=== PATIENT | female | born 1995 | race Caucasian/White ===

== ENCOUNTER 2020-11-05 19:38 | Inpatient (IN) ==
[2020-11-05] MEDS ORDERED: OXYTOCIN 30 UNITS/500 ML BAG IV PRN (21:14)
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
[2020-11-05 21:44] LABS: Hematocrit (blood only) 36.3 % (37-47); Hemoglobin 12.4 g/dL (12.0-16.0); Mean Corpuscular Hemoglobin 29.8 pg (25-34); Mean Corpuscular Hgb Conc 34.2 g/dL (32-36); Mean Corpuscular Volume 87.3 fL (80-100); Mean Platelet Volume 11.1 fL (7.4-10.4); Platelet Count 212 K/uL (130-400); RDW Coefficient of Variation 13.2 % (11.5-14.5); RDW Standard Deviation 41.9 fL (36.4-46.3); Red Blood Count 4.16 M/uL (4.2-5.4); White Blood Count 9.25 K/uL (4.8-10.8)
[2020-11-06] MEDS ORDERED: OXYTOCIN 30 UNITS/500 ML BAG IV PRN ×2 (07:12→18:09)
[2020-11-06] MEDS: LACTATED RINGER'S 1,000 ML IV PRN ×2 (08:54→11:17)
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
[2020-11-06] MEDS ORDERED: fentaNYL citrate 100 MCG/2 ML VIAL ONE (10:36)
[2020-11-06] MEDS ORDERED: SODIUM CHLORIDE 0.9% INJ 10 ML VIAL ONE (10:36)
[2020-11-06] MEDS ORDERED: ePHEDrine sulfate 50 MG/ML AMP ONE (10:36)
[2020-11-06] MEDS ORDERED: BUPIVACAINE 0.25% 30 ML VIAL ONE (10:36)
[2020-11-06] MEDS ORDERED: fentaNYL 2MCG/ML ROPIVACAINE 1.25MG/ML 100 ML BAG EPI ONE (10:37)
[2020-11-06] MEDS ORDERED: NALOXONE HCL 0.4 MG/1 ML VIAL/CARP IV PRN (11:03)
[2020-11-06] MEDS ORDERED: fentaNYL 2MCG/ML ROPIVACAINE 1.25MG/ML 100 ML BAG EPI PRN (11:03)
[2020-11-06] MEDS ORDERED: ePHEDrine sulfate 50 MG/ML AMP IV PRN (11:03)
[2020-11-06] MEDS ORDERED: ONDANSETRON INJ 2 MG/ML 2 ML VIAL IV PRN (11:03)
[2020-11-06] MEDS ORDERED: diphenhydrAMINE 50 MG/ML VIAL IV PRN (11:03)
[2020-11-06] MEDS ORDERED: NALOXONE HCL 1 MG in SODIUM CHLORIDE 0.9% 1000ML 1,000 ML IV PRN (11:03)
--- NOTE | 2020-11-06 11:08 | Anesthesiology Consultation ---
Date of Service November 06, 2020 Covid 19 negative on 11/01/20. Assessment & Plan Chart Review Chart Review: Patient NOT seen in Pre Admission Testing and Acceptable Risk for Labor Epidural Consults Requested none ASA ASA2 Proposed Anesthesia Anesthesia Type: Labor Epidural and CSE Risk / Benefits Reviewed With: PT / POA / Parent / Guardian, Accepts Plan and Informed Consent Obtained History Height/Weight Height: 5 ft 7 in Weight: 206 kg Allergies Allergy/AdvReac Type Severity Reaction Status Date / Time amoxicillin Allergy Unknown Unknown Verified 11/05/20 20:00 ampicillin Allergy Unknown Unknown Verified 11/05/20 20:00 Penicillins Allergy Unknown Unknown Verified 11/05/20 20:00 Medications Home Medications Medication Instructions Recorded Confirmed Last Taken albuterol sulfate 90 mcg/actuation 2 puffs INH Q6H PRN 03/29/20 11/05/20 Unknown aerosol inhaler prenat.vits,alice,rcr-dtks-xcdwd 1 tab PO DAILY 03/29/20 11/05/20 11/05/20 08:00 famotidine 1 tab PO DAILY 08/18/20 11/05/20 11/04/20 08:00 ferrous sulfate 1 tab PO DAILY 09/26/20 11/05/20 11/04/20 08:00 Active Medications Generic Name Dose Route Start Last Admin Trade Name Freq PRN Reason Stop Dose Admin Lactated Ringer's 1,000 mls @ 125 mls/hr 11/05/20 21:14 11/06/20 10:43 Lr IV 11/07/20 21:13 999 mls/hr .Q8H PRN Infusion L&D Protocol Protocol Oxytocin 30 units in 500 mls @ 6 mls/hr 11/06/20 07:12 11/06/20 10:07 Pitocin IV 11/08/20 07:11 0.36 units/hr .Q24H PRN 6 mls/hr Labor Induction/Augmentation Titration Protocol 0.36 UNITS/HR NPO Date Last Intake of Fluids: 11/06/20 Time Last Intake of Fluids: 08:30 Date Last Intake of Solids: 11/06/20 Time Last Intake of Solids: 08:30 Past Medical History Medical History Encounter for anatomic survey History of asthma Rh negative status during Exercise / Class Metabolic Activity II 4-5 Yardwork/Stairs/Walk up hill Past Family History Family History Mother Heart murmur Sister Heart murmur Past Surgical History Surgical History S/P tonsillectomy and adenoidectomy Past Anesthesia History No Hx of Anesthesia Complications and No Family Hx of Anesthesia Complications History of PONV No Hx of PONV and No Hx of Motion Sickness Social History Smoking Status: Never smoker Hx Alcohol Use: No Hx Substance Use: No Review of Systems no chest pain or sob Physical Exam Vital Signs Last Vital Signs Temp 36.6 C 11/06/20 07:12 Pulse 101 H 11/06/20 10:15 Resp 20 11/06/20 07:12 BP 127/78 11/06/20 10:15 SpO2 100 ENMT Mouth: no TMJ abnormality Thyromental Distance: > or= 3.5 Finger Breadths Mallampati Class: II Neck normal visual inspection Respiratory normal respiratory effort Auscultation: lungs clear to auscultation bilaterally Cardiovascular Rate/Rhythm: regular rate and regular rhythm Musculoskeletal Spine: normal cervical ROM Neurologic moves all extremities Psychiatric Orientation: alert and oriented x 3 Testing Laboratory Results 11/05/20 21:33
[2020-11-06] MEDS ORDERED: ACETAMINOPHEN 325 MG TAB PO PRN (18:09)
[2020-11-06] MEDS ORDERED: oxyCODONE/ACETAMINOPHEN 5mg/325mg TAB PO PRN (18:09)
[2020-11-06] MEDS ORDERED: HYDROCORTISONE ACETATE 25 MG SUPP PR PRN (18:17)
[2020-11-06] MEDS ORDERED: DIPHTHERIA/TETANUS/PERTUSSIS 0.5 ML SYR/VIAL IM ONE (18:17)
[2020-11-06] MEDS ORDERED: ALBUTEROL HFA 8 GM INHALER INH PRN (18:17)
[2020-11-06] MEDS ORDERED: SUPERCREAM 0.870% 15 GM JAR EXT PRN (18:17)
[2020-11-06] MEDS ORDERED: BENZOCAINE 20% AER SPR 82.5 GM CAN EXT PRN (18:17)
[2020-11-06] MEDS ORDERED: bisacodyL 10 MG SUPP PR PRN (18:17)
--- NOTE | 2020-11-06 18:41 | Anesthesia Procedure Note ---
Date of Service November 06, 2020 Anesthesia Post Epidural Note Vital Signs Vital Signs: Temp Pulse Resp BP Pulse Ox 37.0 C 112 H 18 161/79 H 99 11/06/20 18:10 11/06/20 18:28 11/06/20 18:25 11/06/20 18:28 11/06/20 18:02 Pain Intensity Lower Medial Abdomen: Pain Intensity: 0 Notes Mental Status: alert / awake / arousable and participated in evaluation Nausea / Vomiting: adequately controlled Pain: adequately controlled Airway Patency, RR, SpO2: stable & adequate BP & HR: stable & adequate Hydration State: stable & adequate Neuraxial Anesthesia: was administered and sensory block is resolving Anesthetic Complications: no major complications apparent and Pt Satisfied with anesthetic care Epidural: Removed without complications and With tip intact
[2020-11-06] MEDS: IBUPROFEN 600 MG TAB PO PRN (19:33)
[2020-11-06] MEDS: DOCUSATE SODIUM 100 MG CAP PO SCH (20:49)
--- NOTE | 2020-11-06 22:53 | Delivery Summary ---
Vaginal Delivery Summary Date of Service November 06, 2020 The patient is a 25-year-old one P0 white female EDC of 11/05/20 who pres ents for induction of labor for postterm . A cervical balloon was placed the night prior to the induction, it was expelled at approximately 6:30 AM. Pitocin augmentation of her labor was begun, she received effective epidural analgesia. Membranes were ruptured at 8 cm of dilation for a very small amount of fluid. She progressed to full dilation, and pushed effectively over intact perineum for delivery of a viable male infant. The infant was vigorous at and was moving all four limbs. After 1 minute the cord was clamped and cut. The placenta was expressed intact with a three-vessel cord. A first-degree vaginal laceration and first-degree right labial laceration were repaired with 3-0 chromic in the usual fashion. Estimated blood loss was 300 cc. bleeding was controlled with dilute Pitocin. All counts were correct after the delivery. Mother and infant were doing well . [facility] Vaginal Delivery Charge Vaginal Delivery Codes: 68983 global code for the antepartum, delivery, and post-
[2020-11-07] MEDS: IBUPROFEN 600 MG TAB PO PRN ×2 (03:25→16:33)
[2020-11-07 06:19] LABS: Hematocrit (blood only) 33.3 % (37-47); Hemoglobin 11.4 g/dL (12.0-16.0); Mean Corpuscular Hemoglobin 29.8 pg (25-34); Mean Corpuscular Hgb Conc 34.2 g/dL (32-36); Mean Corpuscular Volume 86.9 fL (80-100); Platelet Count 191 K/uL (130-400); RDW Coefficient of Variation 13.3 % (11.5-14.5); RDW Standard Deviation 42.8 fL (36.4-46.3); Red Blood Count 3.83 M/uL (4.2-5.4); White Blood Count 12.98 K/uL (4.8-10.8)
--- NOTE | 2020-11-07 06:58 | Obstetrical Progress Note ---
Date of Service <Mony Parminder Castillo DO - Last Filed: 11/07/20 07:20> November 07, 2020 Assessment & Plan <Mony Parminder Castillo DO - Last Filed: 11/07/20 07:20> (1) state: PPD #1 - PNL: Rh NEGATIVE, RI, GBS neg, COVID neg -- Will plan for Rhogam prior to d/c if baby is Rh+ - Feels well today. Eating well, voiding well, ambulating well. - Pain well controlled with ibuprofen 600mg Q4H PRN - Routine care -- OOB, ambulation, diet progression as tolerated - After discharge will have 6 week follow-up with Dr. Dupont. (2) Rh negative status during : (3) Supervision of normal first : Subjective <Mony MossDaniela Castillo DO - Last Filed: 11/07/20 07:20> Niki Bustillos is a 25 y/o female who is PPD #1 following spontaneous vaginal delivery s/p IOL at 40 +1 weeks. She reports feeling well overall this morning. Mild abdominal cramping and 3/10 pain well managed on analgesics. Voiding without dysuria. Tolerating meals overnight without difficulty, nausea, or vomiting. Patient has been able to ambulate some. She is passing gas. Has persistent lochia that improved overnight but she feels slight increasing over the past 1 hour after waking up from sleep (baby was in the nursery overnight). Currently bottle feeding. No breast pain/fullness. Review of Systems Denies fever or chills. Denies shortness of breath or cough. Denies chest pain. Denies breast pain. Denies dysuria. Denies leg pain or leg swelling. Denies headache or changes in vision. Physical Exam <Mony Castillo DO - Last Filed: 11/07/20 07:20> General: Alert, oriented. No acute distress. Cardiac: Regular rate and rhythm. No murmurs. Respiratory: Clear to auscultation bilaterally a/p, no wheezes/rales/rhonchi. No increased work of breathing. Symmetrical chest rise. No respiratory distress. Abdomen: Soft, nontender, nondistended. Bowel sounds present. Uterus: Uterine fundus firm, palpable 1 cm above umbilicus. Lower Extremities: No lower extremity edema or swelling. No deep calf pain. Rogelio's negative bilaterally. Results & Data ([facility]) <Mony Castillo DO - Last Filed: 11/07/20 07:20> Vital Signs (Past 12 Hours) Vital Signs Temp Pulse Pulse Resp BP BP Pulse Ox 11/07/20 03:20 36.9 C 100 H 18 108/60 98 11/06/20 23:20 36.7 C 91 H 18 116/66 97 11/06/20 20:50 36.8 C 92 H 18 125/72 97 11/06/20 20:11 37.0 C 108 H 18 131/60 11/06/20 19:56 107 H 136/60 11/06/20 19:41 110 H 18 148/70 H 11/06/20 19:26 112 H 142/64 H 11/06/20 19:11 112 H 18 148/67 H Laboratory Results 11/07/20 11/07/20 Range/Units 06:00 06:00 WBC 12.98 H (4.8-10.8) K/uL RBC 3.83 L (4.2-5.4) M/uL Hgb 11.4 L (12.0-16.0) g/dL Hct 33.3 L (37-47) % MCV 86.9 (80-100) fL MCH 29.8 (25-34) pg MCHC 34.2 (32-36) g/dL RDW Std Deviation 42.8 (36.4-46.3) fL RDW Coeff of Jackie 13.3 (11.5-14.5) % Plt Count 191 (130-400) K/uL MPV 11.0 H (7.4-10.4) fL Blood Type Pending Antibody Screen Pending Screen Pending <Joanna Blunt MD, FACOG - Last Filed: 11/07/20 07:38> Co-Signing Physician Notes Resident Physician Supervision Note: I interviewed and examined the patient. Discussed with Dr. Castillo and agree with findings and plan as documented in the note. Any exceptions or clarifications are listed here: [None] Documented By: Joanna Blunt MD, FACOG Resident Activity Tracking <Mony Castillo DO - Last Filed: 11/07/20 07:20> Resident Involvement: Resident Care Provided Care Provided: OB Delivery
[2020-11-07] MEDS ORDERED: PRENATAL VITAMIN 1 TAB PO SCH (08:00)
[2020-11-07] MEDS: DOCUSATE SODIUM 100 MG CAP PO SCH ×2 (08:02→20:32)
[2020-11-07] MEDS ORDERED: NON-FORMULARY MEDICATION (Prenat.Vits,Cal,Min-Iron-Folic tablet) PO SCH (09:00)
[2020-11-07] MEDS ORDERED: FAMOTIDINE 20 MG TAB PO SCH (09:00)
[2020-11-07] MEDS ORDERED: bisacodyL 5 MG TABEC PO SCH (20:00)
== END 2020-11-07 21:00 | disposition home or self-care (01) | DRG 807 ==
LOC: 4S1 19:38 → OPB 19:38 → 4S1 21:14 → 4S2 11-06 20:56

== ENCOUNTER 2024-11-05 13:56 | Inpatient (IN) ==
[2024-11-05] MEDS ORDERED: OXYTOCIN 30 UNITS/NSS 30 UNITS/500 ML BAG IV PRN (15:00)
[2024-11-05] MEDS ORDERED: LIDOCAINE 1% LOCAL 20 ML VIAL INFIL PRN (15:00)
[2024-11-05] MEDS ORDERED: SODIUM CHLORIDE 0.9% 500 ML IV SCH (16:00)
[2024-11-05 16:06] LABS: Hematocrit (blood only) 32.4 % (37.0-47.0); Hemoglobin 10.9 g/dl (12.0-16.0); Mean Corpuscular Hemoglobin 27.5 pg (25.0-34.0); Mean Corpuscular Hgb Conc 33.6 g/dL (32.0-36.0); Mean Corpuscular Volume 81.8 fL (80.0-100.0); Mean Platelet Volume 11.7 fL (9.4-12.4); Platelet Count 209 K/uL (130-400); RDW Coefficient of Variation 12.9 % (11.5-14.5); RDW Standard Deviation 38.3 fL (36.4-46.3); Red Blood Count 3.96 M/uL (4.20-5.40); White Blood Count 8.55 K/ul (4.8-10.8)
[2024-11-05] MEDS: OXYTOCIN 30 UNITS/NSS 30 UNITS/500 ML BAG IV PRN (16:12)
[2024-11-05] MEDS: SODIUM CHLORIDE 0.9% 1,000 ML IV SCH (16:12)
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
--- NOTE | 2024-11-05 19:53 | Labor Progress Brief Note ---
Date of Service November 05, 2024 Subjective feeling pain with ctx, request epidural prior to arom balloon fell out about 1hr ago Assessment & Plan (1) Encounter for induction of labor: (2) Gestational diabetes mellitus (GDM) affecting , antepartum: (3) Rh negative status during : Plan plan arom once comfortable from epidural. fhts categ 1. c/w pitocin. Admission and Anticipated Discharge Date Admission Date: November 05, 2024 Physical Exam Constitutional: WD/WN, vitals as above Genitourinary: Manual OB Exam: + cervical dilation 4 cm, + cervical effacement 50% and + station (post) -2 OB Exam Monitor Tracing: + external FHT monitor used, + external uterine monitor used (q3), + category I and + normal FHT variability Results & Data Vital Signs (Past 12 Hours) Vital Signs Temp Pulse Resp BP 11/05/24 19:00 98.2 F 18 11/05/24 19:00 85 116/74 11/05/24 18:16 92 H 16 119/70 11/05/24 17:17 95 H 16 108/63 11/05/24 16:15 97 H 18 118/66 11/05/24 14:38 18 11/05/24 14:38 97.9 F 18 11/05/24 14:37 97.9 F 18 Coding Level of Care Code None Diagnoses Encounter for induction of labor Z34.90 Gestational diabetes mellitus (GDM) affecting , antepartum O24.419 Rh negative status during O26.899; Z67.91
[2024-11-05] MEDS ORDERED: diphenhydrAMINE 50 MG/ML VIAL IV PRN (20:11)
[2024-11-05] MEDS ORDERED: SODIUM CHLORIDE 0.9% PF INJ 10 ML VIAL EPI STA (20:11)
[2024-11-05] MEDS ORDERED: NALBUPHINE HCL INJ 10 MG/ML AMP IV PRN (20:11)
[2024-11-05] MEDS ORDERED: LIDOCAINE 2% MPF LOCAL 5 ML VIAL EPI PRN (20:11)
[2024-11-05] MEDS ORDERED: LIDOCAINE 2%/EPINEPHRINE 1:200,000 20 ML PF EPI STA (20:11)
[2024-11-05] MEDS ORDERED: fentaNYL citrate PF 100 MCG/2 ML VIAL EPI STA (20:11)
[2024-11-05] MEDS ORDERED: NALOXONE HCL 0.4 MG/1 ML VIAL/CARP IV PRN (20:11)
[2024-11-05] MEDS ORDERED: ROPIVACAINE 0.5% PF 5 MG/ML 20 ML VIAL EPI PRN (20:11)
[2024-11-05] MEDS ORDERED: SODIUM CHLORIDE 0.9% PF INJ 10 ML VIAL EPI PRN (20:11)
[2024-11-05] MEDS ORDERED: NALOXONE HCL 1 MG in SODIUM CHLORIDE 0.9% 1,000 ML IV PRN (20:11)
[2024-11-05] MEDS ORDERED: ePHEDrine sulfate 50 MG/ML AMP IV PRN (20:11)
--- NOTE | 2024-11-05 20:11 | Anesthesiology Consultation ---
Date of Service November 05, 2024 Assessment & Plan (1) Encounter for pre-operative examination: Chart Review Chart Review: Patient NOT seen in Pre Admission Testing and Acceptable Risk for Labor Epidural Consults Requested none History Height/Weight Height: 5 ft 7 in Weight: 92.533 kg Allergies Allergy/AdvReac Type Severity Reaction Status Date / Time amoxicillin Allergy Unknown Unknown Verified 11/04/24 10:37 ampicillin Allergy Unknown Unknown Verified 11/04/24 10:37 Penicillins Allergy Unknown Unknown Verified 11/04/24 10:37 Medications Home Medications Medication Instructions Recorded Confirmed Last Taken albuterol sulfate 90 mcg/actuation 2 puffs inhalation Q6H PRN Asthma 03/29/20 11/05/24 08/26/24 aerosol inhaler ondansetron HCl 4 mg tablet 4 mg PO DAILY PRN nausea and 05/27/24 11/05/24 08/28/24 vomiting #30 tabs acetone (urine) test (Ketone Urine #50 ea 06/21/24 11/04/24 Unknown Test strips) blood sugar diagnostic (OneTouch #150 ea 06/21/24 11/04/24 Unknown Verio test strips) blood-glucose meter (OneTouch #1 ea 06/21/24 11/04/24 Unknown Verio Reflect Meter) lancets 33 gauge (OneTouch Delica #150 ea 06/21/24 11/04/24 Unknown Plus Lancet) vits no.124-ferrous fum 1 tab PO DAILY 11/05/24 11/05/24 Unknown 27 mg iron-folic acid 800 mcg tablet ( Vitamin) Active Medications Generic Name Dose Route Start Last Admin Trade Name Freq PRN Reason Stop Dose Admin Oxytocin 30 units in 500 mls @ 8 mls/hr 11/05/24 15:00 11/05/24 18:56 Pitocin 30 Units/Nss IV 11/07/24 14:59 0.48 units/hr .Q24H PRN 8 mls/hr Labor Induction/Augmentation Titration Protocol 0.48 UNITS/HR Sodium Chloride 1,000 mls @ 80 mls/hr 11/05/24 16:15 11/05/24 16:12 Nss IV 11/06/24 16:14 80 mls/hr .[id number] HANSEL Administration Past Medical History Medical History Varicella vaccination Abnormal uterine bleeding Supervision of normal first History of asthma Past Family History Family History Mother Heart murmur Sister Heart murmur Denies family history of Ovarian cancer Breast cancer Colorectal cancer Past Surgical History Surgical History S/P tonsillectomy and adenoidectomy Social History Smoking Status: Former smoker Do You Dip or Chew Tobacco: No Hx Alcohol Use: No Hx Substance Use: No substance use type: does not use Physical Exam Vital Signs Last Vital Signs Temp 98.2 F 11/05/24 19:00 Pulse 98 H 11/05/24 20:06 Resp 18 11/05/24 19:00 BP 126/65 11/05/24 19:57 Pulse Ox 100 11/05/24 20:06 Testing Laboratory Results 11/05/24 15:37 11/05/24 16:04 POC Glucose 106 H
[2024-11-05] MEDS: fentANYL 2 MCG/ML BUPIVacaine 0.125%-NSS 100ML BAG EPI PRN (20:25)
[2024-11-05] MEDS: BUPIVACAINE 0.25% PF 30 ML VIAL EPI STA (20:25)
[2024-11-05] MEDS ORDERED: NURSING L&D Epidural Breakthrough Pain Update ONE (21:35)
--- NOTE | 2024-11-05 22:50 | Anesthesia Procedure Note ---
Date of Service November 05, 2024 Anesthesia Epidural Re-Dose Vital Signs Temp Pulse Resp BP Pulse Ox 97.9 F 92 H 18 128/75 99 11/05/24 21:00 11/05/24 22:46 11/05/24 19:00 11/05/24 22:32 11/05/24 22:46 Notes Pain Intensity: 6 Dilatation (cm): 6.0 Effacement (%): 75 Called by nursing to evaluate epidural as the patient is having increased pain. The epidural was re-dosed with the following medications (all medications via epidural route) after negative aspiration of the epidural catheter for CSF/HEME. 0.25 Bupivacaine (4ml) with 100 mcg Fentanyl After Epidural Re-Dose Mental Status: alert / awake / arousable Pain: improving with treatment Airway Patency, RR, SpO2: stable & adequate BP & HR: stable & adequate
[2024-11-05] MEDS ORDERED: ONDANSETRON INJ 2 MG/ML 2 ML VIAL IV PRN (22:52)
[2024-11-05] MEDS: BUPIVACAINE 0.25% PF 30 ML VIAL EPI PRN (22:54)
[2024-11-05] MEDS: fentaNYL citrate PF 100 MCG/2 ML VIAL EPI PRN (22:54)
[2024-11-06] MEDS: CALCIUM CARBONATE 500 MG CHEWABLE TAB PO PRN (00:08)
--- NOTE | 2024-11-06 01:17 | Delivery Summary ---
Vaginal Delivery Summary Date of Service November 06, 2024 Vaginal Delivery Summary The patient dilated to complete and pushed to deliver a viable female infant Apgars 8 and 9 via over intact perineum. Mouth and nose bulb suctioned at perineum. Body cord noted and delivered through. Shoulders and body delivered with ease. was vigorous and crying at . Cord clamped at 30 seconds of life and to maternal abdomen where the cord was then doubly clamped and cut. Placenta delivered spontaneously and intact, three-vessel cord. Hemostasis achieved with dilute pitocin and uterine massage. Cervix and sulci intact. QBL 164 cc. Mother and baby stable in recovery. [facility] Vaginal Delivery Charge Delivery Type Details:
[2024-11-06] MEDS ORDERED: HYDROCORTISONE ACETATE 25 MG SUPP PR PRN (04:00)
[2024-11-06] MEDS ORDERED: BENZOCAINE 20% SPRY 85 APPLN/85 GM CAN EXT PRN (04:00)
[2024-11-06] MEDS ORDERED: ALBUTEROL HFA 8 GM INHALER INH PRN (04:00)
[2024-11-06] MEDS ORDERED: DIPHTHER/TETAN/PERTUS Vaccine (Tdap, Adol/Adult) 0.5mL IM ONE (04:00)
[2024-11-06] MEDS ORDERED: oxyCODONE/ACETAMINOPHEN 5mg/325mg TAB PO PRN (04:00)
[2024-11-06] MEDS ORDERED: OXYTOCIN 30 UNITS/NSS 30 UNITS/500 ML BAG IV PRN (04:00)
[2024-11-06] MEDS: LIDOCAINE 2%/EPINEPHRINE 1:200,000 20 ML PF ONE (04:05)
[2024-11-06] MEDS: SODIUM CHLORIDE 0.9% PF INJ 10 ML VIAL ONE (04:05)
[2024-11-06] MEDS: BUPIVACAINE 0.25% PF 30 ML VIAL ONE (04:06)
[2024-11-06] MEDS: ePHEDrine sulfate 50 MG/ML AMP ONE (04:06)
[2024-11-06] MEDS: fentaNYL citrate PF 100 MCG/2 ML VIAL ONE (04:06)
[2024-11-06] MEDS: fentANYL 2 MCG/ML BUPIVacaine 0.125%-NSS 100ML BAG ONE (04:06)
[2024-11-06] MEDS: IBUPROFEN 600 MG TAB PO PRN (04:32)
[2024-11-06] MEDS: PRENATAL VITAMIN 1 TAB PO SCH (08:41)
[2024-11-06] MEDS: DOCUSATE SODIUM 100 MG CAP PO SCH (08:41)
--- NOTE | 2024-11-06 08:49 | Anesthesia Procedure Note ---
Date of Service November 06, 2024 Anesthesia Post Epidural Note Vital Signs Vital Signs: Temp Pulse Resp BP Pulse Ox O2 Del Method 37.0 C 92 H 16 119/75 97 Room Air 11/06/24 07:45 11/06/24 07:45 11/06/24 07:45 11/06/24 07:45 11/06/24 04:15 11/06/24 07:45 Pain Intensity Bilateral Lower Abdomen: Pain Intensity: 0 Notes Mental Status: alert / awake / arousable Nausea / Vomiting: adequately controlled Pain: adequately controlled Airway Patency, RR, SpO2: stable & adequate BP & HR: stable & adequate Hydration State: stable & adequate Neuraxial Anesthesia: sensory block resolved Anesthetic Complications: no major complications apparent and Pt Satisfied with anesthetic care Epidural: Removed without complications and With tip intact Notes: Epidural removed per patient request. Removed without complication with the tip intact. Patient tolerated well. Band-aid applied to insertion site.
[2024-11-07] MEDS: ACETAMINOPHEN 325 MG TAB PO PRN (06:10)
[2024-11-07 07:45] VITALS: RESP 16; O2SAT 98
--- NOTE | 2024-11-07 08:22 | Obstetrical Progress Note ---
Date of Service November 07, 2024 Assessment & Plan (1) Gestational diabetes mellitus (GDM) affecting , antepartum: day #2 the patient is doing well she meets discharge criteria no extremity pain no depression she is reviewed for discharge instructions plan discharge later today Physical Exam Constitutional WD/WN, vitals as above well developed and well nourished Respiratory normal respiratory effort, lungs clear to auscultation normal respiratory effort Cardiovascular RRR, no murmur, no edema Gastrointestinal (Abdomen) normal bowel sounds, soft, nontender, no hepatosplenomegaly Results & Data Vital Signs (Past 12 Hours) Vital Signs Temp Pulse Resp BP Pulse Ox O2 Del Method 11/07/24 07:05 97.9 F 97 H 16 120/77 98 Room Air 11/07/24 00:00 98.1 F 80 18 112/71 95 Room Air
[2024-11-07 10:02] VITALS: BP 124/77; PULSE 102; TEMP 98.4
[2024-11-07] MEDS ORDERED: bisacodyL 5 MG TABEC PO SCH (20:00)
== END 2024-11-07 11:20 | disposition home or self-care (01) | DRG 807 ==
LOC: 4S1 14:32 → 4E2 11-06 03:59